=== PATIENT | male | born 1965 | race Caucasian/White ===

== ENCOUNTER 2016-11-12 18:21 | Emergency (ER) | payer BC ==
[2016-11-12] MEDS ORDERED: Sodium Chloride 0.9% 1,000 ML IV ONE (19:50)
[2016-11-12] MEDS ORDERED: Sodium Chloride 0.9% 10 ML Syringe FLUSH PRN (19:50)
[2016-11-12] MEDS ORDERED: Ondansetron 4 MG/2 ML SDV IVPUSH ONE (19:51)
[2016-11-12 21:30] VITALS: BP 117/76
--- NOTE | 2016-11-13 00:42 | ER ---
DATE SEEN: 11/12/2016 CHIEF COMPLAINT: Found on the floor. HISTORY OF PRESENT ILLNESS: This is a 50-year-old male who was found on the floor. The saw him 30 minutes earlier, but came back to the garage and found him lying on the floor. He complains of no headache or chest pain, but he had one episode of vomiting. He has been taking alcohol. REVIEW OF SYSTEMS: Negative for chest pain or shortness of breath. No recent fever. ALLERGIES: Reviewed. PHYSICAL EXAMINATION: GENERAL: He is not in distress. VITAL SIGNS: Initial blood pressure is 138/91, pulse is normal, and oxygenation 97%. EARS, NOSE and THROAT: Negative. HEAD: Normocephalic with no signs of trauma. NECK: Supple. Trachea is midline. CHEST: Clear. CARDIOVASCULAR: Normal. EXTREMITIES: No edema. MENTAL STATUS: Alert. NEUROLOGIC EXAM: No focal findings. Pupils are equal and react to light. LABORATORY DATA: Alcohol level is 0.26. EKG, troponin negative. CT head negative. IMPRESSION: Alcohol intoxication. PLAN: 1 L of normal saline, 8 mg of IV Zofran. Return to the ER p.r.n. Follow up as needed. TIME SEEN: 1930 hours. /[id number] JEMIMA/MARISSA
== END 2016-11-12 21:25 | disposition home or self-care (01) ==
LOC: FB.ED 18:21
DX: F10.129 Alcohol abuse with intoxication, unspecified (principal); Y90.0 Blood alcohol level of less than 20 mg/100 ml
CPT/HCPCS: 36415; 70450; 80053; 80305; 81001; 85025; 93005; 96361; 96374; 99284; G0480; J2405; J7040; J7050

== ENCOUNTER 2019-08-16 17:03 | Emergency (ER) | payer BC ==
--- NOTE | 2019-08-16 17:22 | EDM.PDOC ---
ED HPI GENERAL MEDICAL PROBLEM - General Chief Complaint: Abdominal Pain Stated Complaint: PAIN IN STOMACH Time Seen by Provider: 08/16/19 17:20 Source of Information: Reports: Patient History Limitations: Reports: No Limitations - History of Present Illness INITIAL COMMENTS - FREE TEXT/NARRATIVE: 53-year-old male who reports at approximately level a.m. today after he had done some work on a car he developed pain in his upper abdomen and periumbilical area that was rather sudden in onset. It was spasm and cramping type pain there was some nausea but no vomiting. The pain had progressively worsened but there was a waxing and waning component and it was just not going away. He has had pain similar to this about 3 times in the past with these time it has always gone away within a short period of time. It does seem to be getting worse over time. He reports the pain is about a 4/10 now and he feels somewhat uncomfortable. But at its worst a goes up when 8/10. Minimal bowel movement this morning. He ate breakfast normally today. He has had no dysuria or hematuria. This symptoms have occurred 3 times in the past 2-3 months he states. The typical seemed to get better when he lays down on his right side. The pain is worse with palpation and with movement. There are no other associated signs or symptoms. There are no other modifying factors. Onset: Today (11 AM) Duration: Waxing/Waning Location: Reports: Abdomen Quality: Reports: Sharp, Other (Cramping. The pain does not radiate.) Severity: Moderate (to severe.) Improves with: Reports: Rest Worsens with: Reports: Other (Palpation) Context: Reports: Other (As above. No history of trauma.) Associated Symptoms: Reports: Nausea/Vomiting Treatments PUBLIC DEFENDER: Reports: Other (see below) (Nothing) abdomen Pain Score (Numeric/FACES): 1 - Related Data Allergies Allergy/AdvReac Type Severity Reaction Status Date / Time No Known Allergies Allergy Verified 08/16/19 17:43 Home Meds: Home Meds NK [No Known Home Meds] 11/12/16 [History] Past Medical History - Past Health History Medical/Surgical History: Denies Medical/Surgical History (No chronic medical problems. Surgical history as detailed below.) HEENT History: Reports: Impaired Vision Other HEENT History: wears glasses - Past Surgical History GI Surgical History: Reports: Hernia Repair/Other Social & Family History - Tobacco Use Smoking Status *Q: Unknown Ever Smoked (Nonsmoker.) - Caffeine Use Caffeine Use: Reports: None, Soda - Alcohol Use Alcohol Use History: Yes Alcohol Use Frequency: Weekly (2-3 times a week.) - Living Situation & Occupation Occupation: Employed ED ROS GENERAL - Review of Systems Review Of Systems: See Below Constitutional: Reports: No Symptoms HEENT: Reports: No Symptoms Respiratory: Reports: No Symptoms Cardiovascular: Reports: No Symptoms GI/Abdominal: Reports: Abdominal Pain, Nausea. Denies: Diarrhea, Vomiting : Reports: No Symptoms Musculoskeletal: Reports: No Symptoms Skin: Reports: No Symptoms Neurological: Reports: No Symptoms Psychiatric: Reports: No Symptoms Hematologic/Lymphatic: Reports: No Symptoms Immunologic: Reports: No Symptoms ED EXAM, GI/ABD - Physical Exam Exam: See Below Exam Limited By: No Limitations General Appearance: Alert, WD/WN, Moderate Distress Eyes: Bilateral: Normal Appearance, EOMI Ears: Normal External Exam, Hearing Grossly Normal Nose: Normal Inspection, Normal Mucosa, No Blood Throat/Mouth: Normal Inspection, Normal Lips, Normal Oropharynx, Normal Voice, No Airway Compromise Head: Atraumatic, Normocephalic Neck: Normal Inspection, Supple, Non-Tender, Full Range of Motion Respiratory/Chest: No Respiratory Distress, Lungs Clear, Normal Breath Sounds, No Accessory Muscle Use, Chest Non-Tender Cardiovascular: Normal Peripheral Pulses, Regular Rate, Rhythm, No Murmur, No Rub GI/Abdominal Exam: Normal Bowel Sounds, Soft, No Mass, Tender (In his upper quadrant and more so in his right upper quadrant.). No: Guarding, Rebound Back Exam: Normal Inspection, Full Range of Motion Extremities: Normal Inspection, Normal Range of Motion, Non-Tender, No Pedal Edema, Normal Capillary Refill Neurological: Alert, Oriented, CN II-XII Intact, Normal Cognition, No Motor/ Sensory Deficits Skin Exam: Warm, Dry, Intact, Normal Color, No Rash Course - Vital Signs Last Recorded V/S: Last Vital Signs Temp 36.8 C 08/16/19 22:15 Pulse 56 L 08/16/19 22:15 Resp 16 08/16/19 22:15 BP 141/95 H 08/16/19 22:15 Pulse Ox 97 08/16/19 22:15 - Orders/Labs/Meds Orders: Active Orders 24 hr Category Date Time Status Abdomen Ltd [US] Stat Exams 08/16/19 17:33 Taken Abdomen Pelvis w Cont [CT] Stat Exams 08/16/19 20:38 Taken Peripheral IV Insertion Adult [OM.PC] Routine Oth 08/16/19 17:33 Ordered Labs: Laboratory Tests 08/16/19 08/16/19 08/16/19 Range/Units 17:45 17:45 17:45 WBC 7.1 (4.5-12.0) X10-3/uL RBC 4.69 (4.30-5.75) x10(6)uL Hgb 14.3 (13.5-17.8) g/dL Hct 43.5 (30.0-51.3) % MCV 92.9 (80-96) fL MCH 30.5 (27.7-33.6) pg MCHC 32.9 (32.2-35.4) g/dL RDW 13.0 (11.5-15.5) % Plt Count 185 (125-369) X10(3)uL MPV 7.9 (7.4-10.4) fL Neut % (Auto) 74.0 (46-82) % Lymph % (Auto) 14.9 (13-37) % [place] % (Auto) 7.8 (4-12) % Eos % (Auto) 3 (1.0-5.0) % Baso % (Auto) 1 (0-2) % Neut # (Auto) 5.1 (1.6-8.3) # Lymph # (Auto) 1.1 (0.6-5.0) # [place] # (Auto) 0.6 (0.0-1.3) # Eos # (Auto) 0.2 (0.0-0.8) # Baso # (Auto) 0.1 (0.0-0.2) # Sodium 137 (135-145) mmol/L Potassium 3.9 (3.5-5.3) mmol/L Chloride 103 (100-110) mmol/L Carbon Dioxide 27 (21-32) mmol/L BUN 12 (7-18) mg/dL Creatinine 0.9 (0.70-1.30) mg/dL Est Cr Clr Drug Dosing TNP Estimated GFR (MDRD) > 60 (>60) BUN/Creatinine Ratio 13.3 (9-20) Glucose 101 (80-116) mg/dL Calcium 8.8 (8.6-10.2) mg/dL Total Bilirubin 0.7 (0.1-1.3) mg/dL AST 26 H (5-25) IU/L ALT 38 H (12-36) U/L Alkaline Phosphatase 54 L (56-112) IU/L C-Reactive Protein < 0.2 L (0.5-0.9) mg/dL Total Protein 7.1 (6.0-8.0) g/dL Albumin 3.9 (3.5-5.2) g/dL Globulin 3.2 g/dL Albumin/Globulin Ratio 1.2 Lipase 141 (73-393) U/L Urine Color (YELLOW) Urine Appearance (CLEAR) Urine pH (5.0-6.5) Ur Specific [place] (1.010-1.025) Urine Protein (NEGATIVE) mg/dL Urine Glucose (UA) (NORMAL) mg/dL Urine Ketones (NEGATIVE) mg/dL Urine Occult Blood (NEGATIVE) Urine Nitrite (NEGATIVE) Urine Bilirubin (NEGATIVE) Urine Urobilinogen (NEGATIVE) mg/dL Ur Leukocyte Esterase (NEGATIVE) Urine RBC (0-5) Urine WBC (0-5) Ur Squamous Epith Cells (NS,R,O) Urine Bacteria (NS) 08/16/19 Range/Units 18:10 WBC (4.5-12.0) X10-3/uL RBC (4.30-5.75) x10(6)uL Hgb (13.5-17.8) g/dL Hct (30.0-51.3) % MCV (80-96) fL MCH (27.7-33.6) pg MCHC (32.2-35.4) g/dL RDW (11.5-15.5) % Plt Count (125-369) X10(3)uL MPV (7.4-10.4) fL Neut % (Auto) (46-82) % Lymph % (Auto) (13-37) % [place] % (Auto) (4-12) % Eos % (Auto) (1.0-5.0) % Baso % (Auto) (0-2) % Neut # (Auto) (1.6-8.3) # Lymph # (Auto) (0.6-5.0) # [place] # (Auto) (0.0-1.3) # Eos # (Auto) (0.0-0.8) # Baso # (Auto) (0.0-0.2) # Sodium (135-145) mmol/L Potassium (3.5-5.3) mmol/L Chloride (100-110) mmol/L Carbon Dioxide (21-32) mmol/L BUN (7-18) mg/dL Creatinine (0.70-1.30) mg/dL Est Cr Clr Drug Dosing Estimated GFR (MDRD) (>60) BUN/Creatinine Ratio (9-20) Glucose (80-116) mg/dL Calcium (8.6-10.2) mg/dL Total Bilirubin (0.1-1.3) mg/dL AST (5-25) IU/L ALT (12-36) U/L Alkaline Phosphatase (56-112) IU/L C-Reactive Protein (0.5-0.9) mg/dL Total Protein (6.0-8.0) g/dL Albumin (3.5-5.2) g/dL Globulin g/dL Albumin/Globulin Ratio Lipase (73-393) U/L Urine Color Yellow (YELLOW) Urine Appearance Clear (CLEAR) Urine pH 5.0 (5.0-6.5) Ur Specific [place] 1.010 (1.010-1.025) Urine Protein Negative (NEGATIVE) mg/dL Urine Glucose (UA) Normal (NORMAL) mg/dL Urine Ketones Negative (NEGATIVE) mg/dL Urine Occult Blood Negative (NEGATIVE) Urine Nitrite Negative (NEGATIVE) Urine Bilirubin Negative (NEGATIVE) Urine Urobilinogen Normal (NEGATIVE) mg/dL Ur Leukocyte Esterase Negative (NEGATIVE) Urine RBC 0-5 (0-5) Urine WBC 0-5 (0-5) Ur Squamous Epith Cells Occasional (NS,R,O) Urine Bacteria Rare H (NS) Meds: Medications Discontinued Medications Generic Name Dose Route Start Last Admin Trade Name Freq PRN Reason Stop Dose Admin Sodium Chloride 500 mls @ 999 mls/hr 08/16/19 17:34 08/16/19 17:52 Normal Saline IV 08/16/19 18:04 999 mls/hr .BOLUS ONE Administration Iopamidol 100 ml 08/16/19 20:26 08/16/19 20:33 Isovue-370 (76%) IV 08/16/19 20:27 100 ml ONETIME ONE Administration Morphine Sulfate 4 mg 08/16/19 17:34 08/16/19 17:52 Morphine IVPUSH 08/16/19 17:35 4 mg ONETIME ONE Administration Ondansetron HCl 4 mg 08/16/19 17:34 08/16/19 17:52 Zofran IVPUSH 08/16/19 17:35 4 mg ONETIME ONE Administration Sodium Chloride 10 ml 08/16/19 17:33 Saline Flush FLUSH ASDIRECTED PRN Keep Vein Open - Radiology Interpretation Free Text/Narrative:: Right upper quadrant ultrasound showed no evidence of gallstones per the us tech. CT scan of the abdomen and pelvis showed no acute intra-abdominal process identified. There was hepatic steatosis. There was right nephrolithiasis. There was colonic diverticulosis. There was also a small fat-containing paraiumbilical hernia. This was per the radiologist. - Re-Assessments/Exams Free Text/Narrative Re-Assessment/Exam: 08/16/19 18:55: Patient with improved pain but the pain is still in his upper abdomen and now really periumbilical area and reproducible with palpation. His blood tests are reassuring. His urine test was clear. His ultrasound showed no evidence of gallstones. However, with the patient's persistent pain, I will send him for CT scan of his abdomen and pelvis with IV contrast. 08/16/19 21:40: The patient feels much improved. He has almost no tenderness with palpation in his abdomen. It is soft and nondistended. There are no masses. The CT scan of his abdomen and pelvis showed no acute abnormality. I am unsure why he had the abdominal pain tonight and the recurring episodes of abdominal pain. This certainly sounds like biliary colic despite the fact that he has no cholelithiasis. This could also be related to his abdominal wall hernia. He will need to follow-up with his regular provider as he may need further outpatient workup again (HIDA scan) and possibly referral to a surgeon. The patient is stable for discharge at this point. Departure - Departure Time of Disposition: 21:50 Disposition: Home, Self-Care 01 Condition: Good (Improved) Clinical Impression: Abdominal pain of unknown etiology - Discharge Information Instructions: Abdominal Pain, Adult, [id number] Referrals: Bebo Butler MD [Primary Care Provider] - Forms: ED Department Discharge Additional Instructions: Your blood tests were all reassuringly normal. Your urine test was normal. The ultrasound of your abdomen showed no evidence of gallstones. The CAT scan of your abdomen and pelvis showed acute problem. You do have a small hernia around your bellybutton but this did not appear to be causing any problem at this point. I am unsure why you or having the recurring abdominal pain. Even though you don't have any evidence of gallstones, the recurring pain pattern does sound a lot like gallbladder attacks. It is also possible that you had pain related to your hernia. You need to avoid fatty foods for now. Increase your fluid intake. Follow-up with your primary provider this next week additional outpatient testing or even possibly a referral to a surgeon. Back to the emergency department for recurring pain, fever, vomiting or any other concerning sign or symptom. Sepsis Event Note (ED) - Focused Exam Vital Signs: Vital Signs Temp Temp Pulse Resp BP Pulse Ox 08/16/19 22:15 36.8 C 56 L 16 141/95 H 97 08/16/19 17:15 36.7 C 60 17 152/84 H 96 - My Orders Last 24 Hours: My Active Orders 08/16/19 17:33 Abdomen Ltd [US] Stat Peripheral IV Insertion Adult [OM.PC] Routine 08/16/19 20:38 Abdomen Pelvis w Cont [CT] Stat - Assessment/Plan Last 24 Hours: My Active Orders 08/16/19 17:33 Abdomen Ltd [US] Stat Peripheral IV Insertion Adult [OM.PC] Routine 08/16/19 20:38 Abdomen Pelvis w Cont [CT] Stat
[2019-08-16] MEDS ORDERED: Sodium Chloride 0.9% 10 ML Syringe FLUSH PRN (17:33)
[2019-08-16] MEDS ORDERED: Sodium Chloride 0.9% 500 ML IV ONE (17:34)
[2019-08-16] MEDS ORDERED: Ondansetron 4 MG/2 ML SDV IVPUSH ONE (17:34)
[2019-08-16] MEDS ORDERED: Iopamidol 755 Mg/ML 100 ML Bottle IV ONE (20:26)
[2019-08-16 22:31] VITALS: BP 141/95; PULSE 56
--- NOTE | 2019-08-18 17:59 | US ---
INDICATION: Right upper quadrant pain. RIGHT UPPER QUADRANT/GALLBLADDER ULTRASOUND: Multiple ultrasonographic images were obtained with 2D real-time and color flow imaging as well as duplex Doppler spectral analysis 08/16/19 - no comparisons. The IVC was phasic. Pancreas was not ideally visualized due to intestinal gas but was grossly normal. There was a negative ultrasonic Morales's sign with no pericholecystic fluid, calculi or sludge noted in the gallbladder which measured 7.6 x 3.4 x 3.9 cm. Common bile duct was normal in caliber at 4.6 mm. The right kidney appeared normal measuring 11.9 x 5.5 x 6.5 cm. IMPRESSION: Normal right upper quadrant ultrasound was visualized. MTDD
== END 2019-08-16 22:15 | disposition home or self-care (01) ==
LOC: FB.ED 17:03
DX: R10.10 Upper abdominal pain, unspecified (principal); R10.33 Periumbilical pain
CPT/HCPCS: 36415; 74177; 76705; 80053; 81001; 83690; 85025; 86140; 96374; 96375; 99284; J2270; J2405; J7040; Q9967

== ENCOUNTER 2020-04-26 09:58 | Emergency (ER) | payer BC, OTHER ==
[2020-04-26] MEDS ORDERED: Aspirin 81 MG Tab.Chew PO ONE (10:48)
[2020-04-26] MEDS: Sodium Chloride 0.9% 10 ML Syringe FLUSH PRN ×2 (10:52→12:12)
--- NOTE | 2020-04-26 10:53 | EDM.PDOC ---
ED HPI GENERAL MEDICAL PROBLEM - General Chief Complaint: Chest Pain Stated Complaint: ARM NUMBNESS AND TINGLING Time Seen by Provider: 04/26/20 10:48 Source of Information: Reports: Patient History Limitations: Reports: No Limitations - History of Present Illness INITIAL COMMENTS - FREE TEXT/NARRATIVE: Patient awoke at 0230 with palpitations, described as a rapid heart rate, a ssociated with substernal chest pain and tingling to hands. Palpitations resolved after 30 min, chest pain and left arm tingling persist but severity has improved. Similar symptoms occurred @1 week ago, but he did not seek medical attention. No prior h/o CAD or arrhythmia. Onset Date: 04/26/20 Onset Time: 02:30 Location: Reports: Chest Quality: Reports: Dull Chest Pain Score (Numeric/FACES): 2 - Related Data Allergies Allergy/AdvReac Type Severity Reaction Status Date / Time No Known Allergies Allergy Verified 08/16/19 17:43 Home Meds: Home Meds Aspirin [Adult Low Dose Aspirin EC] 81 mg PO DAILY 04/26/20 [History] Pantoprazole Sodium [Protonix] 40 mg PO DAILY #14 tablet. 04/26/20 [Rx] Past Medical History HEENT History: Reports: Impaired Vision Other HEENT History: wears glasses Cardiovascular History: Denies: CAD, [place] Respiratory History: Reports: Sleep Apnea Gastrointestinal History: Reports: Other (See Below) Other Gastrointestinal History: hernia surgury - Infectious Disease History Infectious Disease History: Reports: Chicken Pox - Past Surgical History GI Surgical History: Reports: Hernia Repair/Other Other GI Surgeries/Procedures: 4-5 years ago Social & Family History - Family History Family Medical History: No Pertinent Family History - Tobacco Use Tobacco Use Status *Q: Unknown Ever Used Tobacco - Caffeine Use Caffeine Use: Reports: Soda (Diet coke daily) - Recreational Drug Use Recreational Drug Use: No - Living Situation & Occupation Occupation: Employed ED ROS GENERAL - Review of Systems Review Of Systems: Comprehensive ROS is negative, except as noted in HPI. ED EXAM, GENERAL - Physical Exam Exam: See Below Exam Limited By: No Limitations General Appearance: Alert, WD/WN, No Apparent Distress Throat/Mouth: No Airway Compromise Head: Atraumatic, Normocephalic Neck: Full Range of Motion Respiratory/Chest: No Respiratory Distress, Lungs Clear, Normal Breath Sounds, Other (mild sternal chest wall tenderness) Cardiovascular: Regular Rate, Rhythm, No Gallop, No Murmur GI/Abdominal: Soft, Non-Tender, No Distention Back Exam: Full Range of Motion Extremities: Normal Inspection, Normal Range of Motion, Non-Tender, No Pedal Edema Neurological: Alert, Normal Cognition Psychiatric: Normal Affect, Normal Mood Skin Exam: Warm, Dry, Intact #1 Interpretation EKG Date: 04/26/20 Time: 10:24 Rhythm: Other (sinus bradycardia) Rate (Beats/Min): 51 [place]: Normal P-Wave: Present QRS: Normal ST-T: Normal QT: Normal Comparison: No Change (11/12/16) Course - Vital Signs Last Recorded V/S: Last Vital Signs Temp 36.4 C 04/26/20 10:16 Pulse 67 04/26/20 13:21 Resp 16 04/26/20 13:21 BP 144/86 H 04/26/20 13:21 Pulse Ox 100 04/26/20 13:21 - Orders/Labs/Meds Orders: Active Orders 24 hr Category Date Time Status EKG Documentation Completion [RC] ASDIRECTED Care 04/26/20 10:24 Active Nitroglycerin [Nitrostat] Med 04/26/20 10:48 Active 0.4 mg SL Q5M PRN Sodium Chloride 0.9% [Saline Flush] Med 04/26/20 10:47 Active 10 ml FLUSH ASDIRECTED PRN Saline Lock Insert [OM.PC] Routine Oth 04/26/20 10:47 Ordered EKG 12 Lead [EK] Stat Ther 04/26/20 10:24 Ordered Medication Orders Nitroglycerin (Nitrostat) 0.4 mg SL Q5M PRN PRN Reason: Chest Pain Last Admin: 04/26/20 11:52 Dose: 0.4 mg Documented by: Admin: 04/26/20 11:28 Dose: 0.4 mg Documented by: CATARINO Sodium Chloride (Saline Flush) 10 ml FLUSH ASDIRECTED PRN PRN Reason: Keep Vein Open Last Admin: 04/26/20 12:12 Dose: 10 ml Documented by: Admin: 04/26/20 10:52 Dose: 10 ml Documented by: CATARINO Labs: Laboratory Tests 04/26/20 04/26/20 04/26/20 Range/Units 10:55 10:55 10:55 WBC 3.8 (3.2-10.1) x10-3/uL RBC 4.48 (3.90-5.90) x10(6)uL Hgb 14.0 (12.9-17.7) g/dL Hct 41.3 (38.3-50.1) % MCV 92.2 (80.8-98.7) fL MCH 31.1 (27.0-33.3) pg MCHC 33.8 (28.7-35.3) g/dL RDW 13.1 (12.4-15.0) % Plt Count 155 (117-477) x10(3)uL MPV 8.6 (6.7-11.0) fL Neut % (Auto) 54.4 (40.3-71.8) % Lymph % (Auto) 30.8 (15.8-45.3) % [place] % (Auto) 8.1 (5.5-15.2) % Eos % (Auto) 4.8 (0.1-6.8) % Baso % (Auto) 1.9 (0.3-3.8) % Neut # (Auto) 2.1 (1.7-6.9) x10-3/uL Lymph # (Auto) 1.2 (0.5-4.5) x10-3/uL [place] # (Auto) 0.3 (0.0-1.2) x10-3/uL Eos # (Auto) 0.2 (0.0-0.6) x10-3/uL Baso # (Auto) 0.1 (0.0-0.3) x10-3/uL PT 10.9 (9.0-11.1) sec INR 1.01 (1.00-1.24) APTT 28.0 (24.4-33.2) SECONDS D-Dimer, Quantitative 0.33 (0.0-0.59) mg/LFEU Sodium 139 (135-145) mmol/L Potassium 4.3 (3.5-5.3) mmol/L Chloride 104 (100-110) mmol/L Carbon Dioxide 29 (21-32) mmol/L BUN 14 (7-18) mg/dL Creatinine 1.0 (0.70-1.30) mg/dL Est Cr Clr Drug Dosing 83.47 mL/min Estimated GFR (MDRD) > 60 (>60) BUN/Creatinine Ratio 14.0 (9-20) Glucose 88 (80-116) mg/dL Calcium 8.4 L (8.6-10.2) mg/dL Total Bilirubin 0.6 (0.1-1.3) mg/dL AST 22 D (5-25) IU/L ALT 40 H (12-36) U/L Alkaline Phosphatase 53 L (56-112) IU/L Troponin I (4.0-60.3) pg/mL Total Protein 7.4 (6.0-8.0) g/dL Albumin 3.9 (3.5-5.2) g/dL Globulin 3.5 g/dL Albumin/Globulin Ratio 1.1 04/26/20 04/26/20 Range/Units 10:55 13:35 WBC (3.2-10.1) x10-3/uL RBC (3.90-5.90) x10(6)uL Hgb (12.9-17.7) g/dL Hct (38.3-50.1) % MCV (80.8-98.7) fL MCH (27.0-33.3) pg MCHC (28.7-35.3) g/dL RDW (12.4-15.0) % Plt Count (117-477) x10(3)uL MPV (6.7-11.0) fL Neut % (Auto) (40.3-71.8) % Lymph % (Auto) (15.8-45.3) % [place] % (Auto) (5.5-15.2) % Eos % (Auto) (0.1-6.8) % Baso % (Auto) (0.3-3.8) % Neut # (Auto) (1.7-6.9) x10-3/uL Lymph # (Auto) (0.5-4.5) x10-3/uL [place] # (Auto) (0.0-1.2) x10-3/uL Eos # (Auto) (0.0-0.6) x10-3/uL Baso # (Auto) (0.0-0.3) x10-3/uL PT (9.0-11.1) sec INR (1.00-1.24) APTT (24.4-33.2) SECONDS D-Dimer, Quantitative (0.0-0.59) mg/LFEU Sodium (135-145) mmol/L Potassium (3.5-5.3) mmol/L Chloride (100-110) mmol/L Carbon Dioxide (21-32) mmol/L BUN (7-18) mg/dL Creatinine (0.70-1.30) mg/dL Est Cr Clr Drug Dosing mL/min Estimated GFR (MDRD) (>60) BUN/Creatinine Ratio (9-20) Glucose (80-116) mg/dL Calcium (8.6-10.2) mg/dL Total Bilirubin (0.1-1.3) mg/dL AST (5-25) IU/L ALT (12-36) U/L Alkaline Phosphatase (56-112) IU/L Troponin I 7.2 7.8 (4.0-60.3) pg/mL Total Protein (6.0-8.0) g/dL Albumin (3.5-5.2) g/dL Globulin g/dL Albumin/Globulin Ratio Meds: Medications Generic Name Dose Route Start Last Admin Trade Name Freelena PRN Reason Stop Dose Admin Nitroglycerin 0.4 mg 04/26/20 10:48 04/26/20 11:52 Nitrostat SL 0.4 mg Q5M PRN Administration Chest Pain Sodium Chloride 10 ml 04/26/20 10:47 04/26/20 12:12 Saline Flush FLUSH 10 ml ASDIRECTED PRN Administration Keep Vein Open Discontinued Medications Generic Name Dose Route Start Last Admin Trade Name Freelena PRN Reason Stop Dose Admin Aspirin 243 mg 04/26/20 10:48 04/26/20 10:55 Aspirin PO 04/26/20 10:49 243 mg ONETIME ONE Administration Ketorolac Tromethamine 15 mg 04/26/20 12:02 04/26/20 12:11 Toradol IVPUSH 04/26/20 12:03 15 mg ONETIME ONE Administration Pantoprazole Sodium 40 mg 04/26/20 12:03 04/26/20 12:11 Protonix Iv IVPUSH 04/26/20 12:04 40 mg ONETIME ONE Administration - Radiology Interpretation Free Text/Narrative:: CXR: No acute process. (ED provider interpretation) - Re-Assessments/Exams Free Text/Narrative Re-Assessment/Exam: 04/26/20 12:06 No improvement after NTG SL x 2. 04/26/20 13:28 Symptoms resolved after Toradol and Protonix. 04/26/20 14:12 NSR s/ ectopy during ED stay. Departure - Departure Time of Disposition: 14:12 Disposition: Home, Self-Care 01 Condition: Good Clinical Impression: Palpitations Chest pain Qualifiers: Chest pain type: unspecified Qualified Code(s): R07.9 - Chest pain, unspecified Prescriptions: Pantoprazole Sodium [Protonix] 40 mg PO DAILY #14 tablet.dr Instructions: Palpitations, [id number], Nonspecific Chest Pain, Adult, [id number] Referrals: Bebo Butler MD [Primary Care Provider] - 2 Days Forms: ED Department Discharge Additional Instructions: Continue Aspirin 81 mg daily. Fill the prescription for Protonix at [facility] and take as directed. Discontinue caffeine consumption. Follow up with your primary physician in 2-3 days. Return to the ER if symptoms worsen. Sepsis Event Note (ED) - Evaluation Sepsis Screening Result: No Definite Risk - Focused Exam Vital Signs: Vital Signs Temp Pulse Resp BP BP Pulse Ox 04/26/20 13:21 67 16 144/86 H 100 04/26/20 12:02 53 L 14 128/88 95 04/26/20 11:58 58 L 16 153/104 H 94 L 04/26/20 11:56 60 16 144/103 H 95 04/26/20 11:54 56 L 16 136/89 95 04/26/20 11:52 138/93 H 04/26/20 11:33 60 16 136/93 H 96 04/26/20 11:28 140/95 H 04/26/20 11:09 56 L 16 156/108 H 98 04/26/20 10:39 58 L 14 148/84 H 95 04/26/20 10:16 36.4 C 56 L 14 142/91 H 96 - My Orders Last 24 Hours: My Active Orders 04/26/20 10:24 EKG Documentation Completion [RC] ASDIRECTED EKG 12 Lead [EK] Stat 04/26/20 10:47 Sodium Chloride 0.9% [Saline Flush] 10 ml FLUSH ASDIRECTED PRN Saline Lock Insert [OM.PC] Routine 04/26/20 10:48 Nitroglycerin [Nitrostat] 0.4 mg SL Q5M PRN - Assessment/Plan Last 24 Hours: My Active Orders 04/26/20 10:24 EKG Documentation Completion [RC] ASDIRECTED EKG 12 Lead [EK] Stat 04/26/20 10:47 Sodium Chloride 0.9% [Saline Flush] 10 ml FLUSH ASDIRECTED PRN Saline Lock Insert [OM.PC] Routine 04/26/20 10:48 Nitroglycerin [Nitrostat] 0.4 mg SL Q5M PRN
[2020-04-26] MEDS: Nitroglycerin 0.4 MG Tab.SL SL PRN ×2 (11:28→11:52)
[2020-04-26] MEDS ORDERED: Ketorolac 30 MG/ML SDV IVPUSH ONE (12:02)
[2020-04-26] MEDS ORDERED: Pantoprazole 40 MG Vial IVPUSH ONE (12:03)
--- NOTE | 2020-04-26 13:08 | CR ---
CHEST ONE VIEW [id number] INDICATION: Chest pain. An AP upright wheelchair view of the chest was obtained 04/26/2020--no comparisons. The heart does not appear grossly enlarged allowing for AP positioning and relatively poor inspiration. Overlying EKG leads are noted. The aorta is somewhat tortuous. A definite active infiltrate or effusion was not identified. Evidence of exogenous obesity is noted. IMPRESSION: No acute process. MTDD
[2020-04-26 17:28] VITALS: BP 148/92; PULSE 56
== END 2020-04-26 14:37 | disposition home or self-care (01) ==
LOC: FB.ED 09:58
DX: R00.2 Palpitations (principal); R07.9 Chest pain, unspecified; Z79.82 Long term (current) use of aspirin
CPT/HCPCS: 36415; 71045; 80053; 84484; 85025; 85379; 85610; 85730; 93005; 96374; 96375; 99285-25; A9270-GY; C9113; J1885

== ENCOUNTER 2021-07-22 17:42 | Emergency (ER) | payer BC ==
[2021-07-22] MEDS ORDERED: Acetaminophen/HYDROcodone 325-5 MG Tab PO ONE (17:43)
[2021-07-22 17:48] VITALS: BP 173/85; PULSE 48
[2021-07-22] MEDS ORDERED: Sodium Chloride 0.9% 10 ML Syringe FLUSH PRN (17:52)
[2021-07-22] MEDS ORDERED: Ondansetron 4 MG/2 ML SDV IVPUSH ONE (17:54)
[2021-07-22] MEDS ORDERED: Morphine 4 MG/ML VIAL IVPUSH ONE (17:54)
[2021-07-22] MEDS ORDERED: Sodium Chloride 0.9% 1,000 ML IV SCH (18:00)
[2021-07-22] MEDS ORDERED: Ketorolac 30 MG/ML SDV IVPUSH STA (19:34)
[2021-07-22] MEDS ORDERED: Tamsulosin 0.4 MG Cap.ER PO ONE (19:38)
== END 2021-07-22 19:52 | disposition home or self-care (01) ==
LOC: FB.ED 17:42
DX: R10.11 Right upper quadrant pain (principal); R10.31 Right lower quadrant pain; N20.2 Calculus of kidney with calculus of ureter; Z79.899 Other long term (current) drug therapy
CPT/HCPCS: 36415; 74177; 80053; 81001; 82150; 83690; 85025; 96374; 96375; 99284; A9270; J1885; J2270; J2405; J3490; J7030; 99282

== ENCOUNTER 2024-04-27 19:25 | Emergency (ER) | payer BC ==
[2024-04-27 19:41] LABS: BASOPHILS PERCENT AUTO 0.7 % (0.3-3.8); EOSINOPHILS ABSOLUTE AUTO 0.1 x10-3/uL (0.0-0.6); EOSINOPHILS PERCENT AUTO 1.9 % (0.1-6.8); HEMATOCRIT 41.6 % (38.3-50.1); HEMOGLOBIN 14.2 g/dL (12.9-17.7); LYMPHOCYTES ABSOLUTE AUTO 2.4 x10-3/uL (0.5-4.5); LYMPHOCYTES PERCENT AUTO 48.5 % (15.8-45.3); MEAN CORPUSCULAR HEMOGLOBIN 30.5 pg (27.0-33.3); MEAN CORPUSCULAR HGB CONC 34.2 g/dL (28.7-35.3); MEAN CORPUSCULAR VOLUME 89.3 fL (80.8-98.7); MEAN PLATELET VOLUME 8.6 fL (6.7-11.0); MONOCYTES ABSOLUTE AUTO 0.5 x10-3/uL (0.0-1.2); MONOCYTES PERCENT AUTO 9.6 % (5.5-15.2); NEUTROPHILS ABSOLUTE AUTO 1.9 x10-3/uL (1.7-6.9); NEUTROPHILS PERCENT AUTO 39.3 % (40.3-71.8); PLATELET COUNT,PLT 160 x10(3)uL (117-477); RED BLOOD CELL COUNT 4.66 x10(6)uL (3.90-5.90); RED CELL DISTRIBUTION WIDTH 13.5 % (12.4-15.0); WHITE BLOOD CELL COUNT,WBC 4.9 x10-3/uL (3.2-10.1)
[2024-04-27 19:45] LABS: BLOOD UREA NITROGEN,BUN 12 mg/dL (7-18); BUN/CREATININE RATIO 13.3 (9-20); CALCIUM 8.4 mg/dL (8.6-10.2); CARBON DIOXIDE,CO2 24 mmol/L (21-32); CHLORIDE,CL 100 mmol/L (100-110); CREATININE 0.9 mg/dL (0.70-1.30); ESTIMATED GFR 98 mL/min (>60); GLUCOSE RANDOM 122 mg/dL (80-116); POTASSIUM,K 3.8 mmol/L (3.5-5.3); SODIUM,NA 137 mmol/L (135-145)
[2024-04-27 19:47] LABS: BASE EXCESS VENOUS,POC -4 mmol/L (-2 - 3+); PCO2 VENOUS,POC 37 mmHg (41-51); PH VENOUS,POC 7.36 pH Units (7.32-7.43)
[2024-04-27 19:47] LABS: INR 1.04 (1.00-1.24); PROTHROMBIN TIME 10.8 sec (9.0-11.1)
[2024-04-27] MEDS: Ondansetron 4 MG/2 ML SDV IVPUSH ONE (19:49)
[2024-04-27] MEDS: Sodium Chloride 0.9% 1,000 ML IV ONE (19:50)
[2024-04-27 19:51] LABS: ALANINE AMINOTRANSFERASE,ALT 43 U/L (12-36); ALBUMIN 3.8 g/dL (3.5-5.2); ALKALINE PHOSPHATASE 76 IU/L (56-112); ASPARTATE AMNIOTRANSFERASE,AST 33 IU/L (5-25); BILIRUBIN TOTAL 0.5 mg/dL (0.1-1.3); PROTEIN TOTAL,TP 7.8 g/dL (6.0-8.0)
[2024-04-27 19:59] LABS: TROPONIN I 26.1 pg/mL (4.0-60.3)
[2024-04-27 20:01] LABS: ETHANOL BLOOD MEDICAL 0.42 % (<0.03)
[2024-04-27] MEDS: Ondansetron 4 MG/2 ML SDV ONE (23:12)
[2024-04-28 06:12] VITALS: BP 162/95; PULSE 68
== END 2024-04-28 05:35 | disposition home or self-care (01) ==
LOC: FB.ED 19:25
DX: F10.129 Alcohol abuse with intoxication, unspecified (principal); Y90.8 Blood alcohol level of 240 mg/100 ml or more; Z79.899 Other long term (current) drug therapy
CPT/HCPCS: 36415; 70450; 71045; 80053; 80307; 83605; 84484; 85025; 85610; 93005; 96361; 96374; 99285; J2405